=== PATIENT | male | born 1960 | race Caucasian/White ===

== ENCOUNTER 2017-12-26 08:22 | Observation (INO) ==
--- NOTE | 2017-12-26 08:47 | Emergency Department Note ---
Disposition Clinical Impression: Chest pain Qualifiers: Chest pain type: other chest pain Qualified Code(s): R07.89 - Other chest pain Disposition: Admitted As Inpatient Condition: Good Time of Disposition: 10:32 General Adult HPI - General Stated complaint: CP Time Seen by Provider: 12/26/17 08:26 Source: patient Nursing Notes Reviewed: Yes Vital Signs Reviewed: Yes - History of Present Illness HPI Narrative: Left-sided chest pain that started this morning. Woke up and noticed it was there. Got worse after he went to work. Radiates to his left neck and left arm. No associated shortness of breath nausea vomiting or diarrhea. Did get some mild relief with one nitroglycerin administered by EMS. Thought that he had slept on his neck wrong and that was provoking the pain. Pain Scale: 4 - Related Data Previous Rx's Medication Instructions Recorded Naproxen [Naprosyn] 500 mg PO BID #10 tablet 02/06/16 HYDROcodone/Acet 5/325 mg [[place] 1 tab PO Q6H PRN #15 tab 11/01/16 5-325 mg] diazePAM [Valium] 5 mg PO TID #10 tablet 11/01/16 Allergies Allergy/AdvReac Type Severity Reaction Status Date / Time aspirin [ASA] AdvReac Nausea Verified 11/01/16 07:37 All systems ED: reviewed and negative except as stated. Constitutional: Denies: fever, chills Cardiovascular: Reports: chest pain (Left-sided). Denies: palpitations Respiratory: Reports: cough, sputum production (For over a month). Denies: dyspnea Gastrointestinal: Denies: abdominal pain, nausea, vomiting, diarrhea, hematemesis, melena, hematochezia Genitourinary: Denies: urgency, dysuria, frequency, hematuria Musculoskeletal: Reports: neck pain (Left-sided). Denies: back pain Neurological: Denies: headache, weakness Past Medical History - Past Medical History Attestation: Yes The following information was validated with the patient. Source: patient Medical history: Reports: cancer, hypertension, myocardial infarction Surgical history: Reports: non-contributory Psychiatric history: Reports: no psych history - Social History Smoking Status: Never smoker Smokeless Tobacco Status: No Alcohol use: Reports: none Drug use: Reports: none Physical Exam - General Limitations: no limitations General appearance: alert, in no apparent distress - Head Head exam: atraumatic, normocephalic, normal inspection - Eye Eye exam: Present: normal appearance, PERRL, EOMI - ENT ENT exam: normal exam, normal oropharynx, mucous membranes moist - Neck Neck exam: Present: normal inspection, full ROM, trachea midline - Chest Chest inspection: Present: normal inspection, symmetric chest wall rise - Respiratory Respiratory exam: Present: normal lung sounds bilaterally. Absent: respiratory distress, wheezes, accessory muscle use - Cardiovascular Cardiovascular exam: Present: regular rate, normal rhythm, normal heart sounds - Abdominal Exam Abdominal exam: Present: soft, Non-Tender. Absent: rigidity - Extremities Exam Extremities exam: Present: normal inspection, full ROM. Absent: tenderness, pedal edema - Neurological Exam Neurological exam: Present: alert, oriented X3 - Psychiatric Psychiatric exam: Present: normal affect, normal mood - Skin Skin exam: Present: warm, dry, intact, normal color. Absent: rash, cyanosis Course Course Narrative: Male patient presents emergency department complaining of left-sided chest pain that was present when he woke up this morning. Significantly got worse while he was sitting in his truck at work. States he has been told that he had a heart attack in the past has never had stent placement. States that the pain is on the left side of his chest goes into his left neck and down left arm. Denies any nausea vomiting or shortness of breath. No swelling or edema to his extremities. He cannot reproduce the pain with palpation. He is flushed in his face. He does not appear to be in any distress at this time. Lung sounds are clear. We will do a cardiac workup and provide patient with pain medication. States he did receive 4 baby aspirin in the squad on the way here. He also received 1 nitroglycerin with some relief of the pain. Patient has a significant cardiac history in his family with early deaths. He is a smoker. He has a heart score of 5. His troponin is negative currently. No signs of acute STEMI on EKG. Patient is still having persistent chest pain. We will provide him with some fentanyl while here. We will admit to the hospital for further cardiac workup. - Consultations Consultation #1: Dr Hanna accepted Pt in stable condition. Time: 10:40 Vital Signs Temperature 97.8 F 12/26/17 08:23 Pulse Rate 78 12/26/17 08:23 Respiratory Rate 16 12/26/17 08:23 Blood Pressure 144/95 12/26/17 08:23 O2 Sat by Pulse Oximetry 96 12/26/17 08:23 Temperature 97.8 F 12/26/17 08:23 Pulse Rate 87 12/26/17 09:27 Respiratory Rate 16 12/26/17 09:27 Blood Pressure 144/95 12/26/17 09:27 O2 Sat by Pulse Oximetry 98 12/26/17 09:27 Oxygen Delivery Oxygen Delivery Room Air Medical Decision Making - Medical Records Medical records reviewed: Yes I reviewed the patient's medical records. - Lab Data Lab results reviewed: Yes I reviewed the patient's lab results. Result diagrams: 12/26/17 09:06 12/26/17 09:06 Lab Results 12/26/17 12/26/17 12/26/17 Range/Units 09:06 09:06 09:06 WBC 6.8 (4.3-11.1) K/mcL RBC 5.85 H (4.19-5.50) M/mcL Hgb 16.3 (12.9-16.9) g/dL Hct 48.2 (37.5-50.1) % MCV 82.4 L (83.0-100.0) fL MCH 27.9 L (28.0-33.3) pg MCHC 33.8 (31.6-35.5) g/dL RDW 13.7 (11.5-14.5) % Plt Count 207 (140-400) K/mcL MPV 9.6 (9.4-12.4) fL Immature Gran % 0.3 (0-4) % Seg Neutrophils % 75.9 % Lymphocytes % 16.4 % Monocytes % 5.8 % Eosinophils % 1.2 % Basophils % 0.4 % Neutrophils # 5.1 (1.6-8.9) K/mcL Lymphocytes # 1.1 (0.6-4.6) K/mcL Monocytes # 0.4 (0.0-1.3) K/mcL Eosinophils # 0.1 (0.0-0.6) K/mcL Basophils # 0.0 (0.0-0.2) K/mcL PT 12.6 H (9.4-12.1) Seconds INR 1.2 Sodium 137 (136-145) mEq/L Potassium 3.9 (3.5-5.1) mEq/L Chloride 105 (98-107) mEq/L Carbon Dioxide 26 (23-29) mEq/L BUN 11 (6-20) mg/dL Creatinine 0.90 (0.70-1.30) mg/dL Est GFR ( Amer) > 60 (> 60) Est GFR (Non-Af Amer) > 60 (> 60) BUN/Creatinine Ratio 12 (6-26) Glucose 120 H (70-105) mg/dL Calculated Osmolality 285 (280-300) Calcium 8.8 (8.6-10.3) mg/dL Troponin I < 0.03 (< 0.04) ng/mL - Radiology Data Radiology results reviewed: Yes I reviewed the patient's radiology results. No signs of cardiopulmonary disease. - EKG Data EKG #1 EKG attestation: Yes I reviewed and interpreted this EKG. EKG results narrative: Normal sinus rhythm at a rate 82. OK intervals 134. QRS duration is 107. QT is 373. QTC is 411. No signs of acute ischemia. No significant change from previous EKG dated 01/06/2014. Heart Score - Score History: Moderately Suspicious EKG: Non Specific repolarisation Disturbance Age: 45-65 Risk Factors: Equal/Greater than 3 risk factor or history of atherosclerotic disease Troponin: Less than normal limit HEART Score Total: 5
[2017-12-26 09:18] LABS: Basophils % 0.4 %; Eosinophils # 0.1 K/mcL (0.0-0.6); Eosinophils % 1.2 %; Hematocrit 48.2 % (37.5-50.1); Hemoglobin 16.3 g/dL (12.9-16.9); Immature Granulocytes % 0.3 % (0-4); Lymphocytes # 1.1 K/mcL (0.6-4.6); Lymphocytes % 16.4 %; Mean Corpuscular HGB Conc 33.8 g/dL (31.6-35.5); Mean Corpuscular Hemoglobin 27.9 pg (28.0-33.3); Mean Corpuscular Volume 82.4 fL (83.0-100.0); Mean Platelet Volume 9.6 fL (9.4-12.4); Monocytes # 0.4 K/mcL (0.0-1.3); Monocytes % 5.8 %; Neutrophils # 5.1 K/mcL (1.6-8.9); Platelet Count 207 K/mcL (140-400); Red Blood Count 5.85 M/mcL (4.19-5.50); Red Cell Distribution Width 13.7 % (11.5-14.5); Segmented Neutrophils % 75.9 %
[2017-12-26 09:24] LABS: INR 1.2; Prothrombin Time 12.6 Seconds (9.4-12.1)
[2017-12-26 09:43] LABS: BUN/Creatinine Ratio 12 (6-26); Blood Urea Nitrogen 11 mg/dL (6-20); Calcium 8.8 mg/dL (8.6-10.3); Carbon Dioxide 26 mEq/L (23-29); Chloride 105 mEq/L (98-107); Glucose 120 mg/dL (70-105); Osmolality,Calculated 285 (280-300); Potassium 3.9 mEq/L (3.5-5.1); Sodium 137 mEq/L (136-145); Troponin I < 0.03 ng/mL (< 0.04); eGFR For African Americans > 60 (> 60); eGFR For Non-African Americans > 60 (> 60)
[2017-12-26] MEDS ORDERED: *HR* FentaNYL (PF) 100 MCG/2 ML VIAL IVP ONE (10:27)
[2017-12-26] MEDS ORDERED: Nitroglycerin 0.4 MG TAB.SUBL SL STA (12:53)
[2017-12-26] MEDS ORDERED: *HR* HYDROcodone/Acet 5/325 mg TABLET PO PRN (12:59)
[2017-12-26] MEDS ORDERED: Naloxone 0.4 MG/ML INJ IVP PRN (12:59)
[2017-12-26] MEDS ORDERED: Acetaminophen 325 MG TABLET PO PRN (12:59)
[2017-12-26] MEDS ORDERED: Nitroglycerin 0.4 MG TAB.SUBL SL PRN (13:06)
--- NOTE | 2017-12-26 13:22 | Internal Med History&Physical ---
Date of Encounter: 12/26/17 Time of Encounter: 13:19 Internal Medicine - H&P: HPI Chief complaint: Chest Pain, Left Neck Pain, Left Shoulder Pain Admitted From: Emergency Dept Plans for Post Hospital Care: Home History of present illness: Mr. Betts is a 57 year old white male with PMH of CAD, HTN, and HLD, who presented to ED this morning with chest pain, left neck pain, and left shoulder pain. He states that pain started this morning when he woke up. Pain was located in left upper chest and radiated to left neck and left shoulder. 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 So he decided to come to ED. He denies any SOB, diaphoresis, nausea, vomiting, fever, or chills. He was brought by EMS, and had brief improvement in pain en route with administration of nitroglycerin. He had thought that he may have "slept wrong" on his neck. During my interview, chest pain is improved to 4/ 10. He received IV fentanyl in ED. In the ED, initial EKG was unremarkable and initial troponin was WNL. He has no other complaints at this time. Past Med Surg Social Fam HX - Past Medical History Attestation: Yes The following information was validated with the patient. Source: patient Medical history: cancer, coronary artery disease, hyperlipidemia, hypertension, myocardial infarction Psychiatric history: no psych history - Past Surgical History Surgical History: no surgical history - Social History Smoking Status: Current every day smoker Smokeless Tobacco Status: No Alcohol use: none Drug use: none - Additional Family History Additional family history: No significant family history per patient. Internal Medicine - H&P: Meds Aspirin 81 mg PO DAILY 12/26/17 [History] Dicyclomine [Bentyl] 10 mg PO TID 12/26/17 [History] Lisinopril [Zestril] 10 mg PO DAILY 12/26/17 [History] Lovastatin [Mevacor] 20 mg PO DAILY 12/26/17 [History] Metoprolol XL (24 HR) Succ [Toprol XL] 12.5 mg PO DAILY 12/26/17 [History] Omeprazole [PriLOSEC] 20 mg PO DAILY 12/26/17 [History] 3 Allergy/AdvReac Type Severity Reaction Status Date / Time aspirin [ASA] AdvReac Nausea Verified 12/26/17 11:05 - Constitutional Constitutional: no anorexia, no chills, no fatigue, no fever(s), no lethargy, no malaise, no weakness, no weight gain, no weight loss - EENT Eyes: no blurry vision, no diplopia, no discharge, no loss of vision, no pain, no other visual disturbances Ears: no decreased hearing, no ear pain Nose, mouth and throat: no dry mouth, no dysphagia, no facial pain, no mouth lesions, no mouth pain, no nasal congestion, no nasal discharge, no sinus pain, no sore throat - Cardiovascular Cardiovascular ROS IM: chest pain, no diaphoresis, no dyspnea, no dyspnea on exertion, no edema, no lightheadedness, no palpitations, no syncope - Respiratory Respiratory: no cough, no dyspnea, no hemoptysis, no dyspnea on exertion, no wheezing, no chest congestion - Gastrointestinal Gastrointestinal: no abdominal pain, no change in bowel habits, no constipation , no diarrhea, no dysphagia, no heartburn, no hematemesis, no hematochezia, no melena, no nausea, no vomiting - Genitourinary Genitourinary ROS male: no difficulty urinating, no dysuria, no hematuria, no urinary frequency - Musculoskeletal Musculoskeletal ROS IM: myalgias, neck pain, no back pain, no joint swelling, no muscle cramps, no muscle weakness - Integumentary Integumentary IM: no erythema, no rash, no skin ulcer, no jaundice - Neurological Neurological ROS: no abnormal gait, no abnormal speech, no behavioral changes, no confusion, no dizziness, no focal weakness, no headache(s), no vertigo, no weakness - Psychiatric Psychiatric: no anxiety, no behavioral changes, no confusion, no depression, no hallucinations - Endocrine Endocrine IM: no cold intolerance, no fatigue, no heat intolerance, no polydipsia, no polyphagia, no polyuria - Constitutional Vitals: Temp Pulse Resp BP Pulse Ox 97.5 F L 58 16 118/74 96 12/26/17 11:14 12/26/17 11:14 12/26/17 11:14 12/26/17 11:14 12/26/17 11:14 General appearance: Present: cooperative, A&O X 3, no acute distress, obese, answers questions appropriately - Head Head exam: Present: atraumatic, normocephalic - Eye Eye exam: Present: EOMI, PERRL. Absent: conjunctival injection, nystagmus, scleral icterus - ENT ENT exam: Present: mucous membranes moist, normal external ear exam, normal oropharynx - Neck Neck exam general surgery: Present: supple, trachea midline. Absent: lymphadenopathy, thyromegaly Additional comments: Mild TTP over left neck - Respiratory Respiratory exam: Present: CTAB. Absent: accessory muscle use, rales, rhonchi, wheezes Additional comments: Normal WOB - Cardiovascular Cardiovascular exam: Present: RRR, +S1, +S2. Absent: diastolic murmur, gallop, rubs, systolic murmur Additional comments: No BLE edema, mild TTP over left upper chest - GI/Abdominal GI/Abdominal exam: Present: normal bowel sounds, soft. Absent: distended, hepatomegaly, mass, splenomegaly, tenderness - Extremities Exam Extremities exam: Present: normal capillary refill. Absent: calf tenderness, cyanotic, joint swelling, pedal edema, tenderness Additional comments: Mild TTP over left shoulder - Neurological Exam Neurological exam: Present: alert, CN II-XII intact, oriented X3, no focal deficits, strengths equal and symetr throughout. Absent: facial droop, speech deficit - Psychiatric Psychiatric exam: Present: normal affect, normal mood. Absent: anxious, depressed - Skin Skin exam: Present: dry, intact, warm. Absent: cyanosis, rash Internal Med - H&P Results - Labs CBC & Chem 7: 12/26/17 09:06 12/26/17 09:06 - VTE Reasons for not Prescribing Prophylaxis: Treatment not Indicated - Low risk for VTE Documentation of Mechanical Device: Intermittent pneumatic compression device - Assessment and plan (1) Chest pain Current Visit: Yes Status: Acute Assessment and plan: Non-specific left chest, left neck, and left shoulder pain that is reproducible with palpation. Remote history of CAD with no intervention 7 years ago. He has been following up with cardiology since then. Low to moderate suspicion for ACS. Will admit to observation for workup and ruleout of ACS. Start telemetry. Start supplemental O2 PRN. Start SL nitro PRN. Start tylenol and norco PRN pain. Continue home aspirin. Trend troponin x 3. Obtain ECHO. Repeat EKG in AM. Continue home medications for CAD, HTN, and HLD. Repeat labwork in AM. Qualifiers: Chest pain type: other chest pain Qualified Code(s): R07.89 - Other chest pain; R07.8 - Other chest pain (2) Neck pain on left side Current Visit: Yes Status: Acute Assessment and plan: No history of trauma. Treat pain as per above. (3) Left shoulder pain Current Visit: Yes Status: Acute Assessment and plan: No history of trauma. Treat pain as per above. Qualifiers: Chronicity: acute Qualified Code(s): M25.512 - Pain in left shoulder (4) CAD (coronary artery disease) Current Visit: Yes Status: Chronic Assessment and plan: Ruling out ACS as per above. Continue home medications. Qualifiers: Coronary Disease-Associated Artery/Lesion type: unspecified vessel or lesion type [place] vs. transplanted heart: unspecified whether [place] or transplanted heart Associated angina: with unspecified angina Qualified Code (s): I25.119 - Atherosclerotic heart disease of [place] coronary artery with unspecified angina pectoris (5) HTN (hypertension) Current Visit: Yes Status: Chronic Assessment and plan: Continue home lisinopril and metoprolol XL. Qualifiers: Hypertension type: essential hypertension Qualified Code(s): I10 - Essential (primary) hypertension (6) HLD (hyperlipidemia) Current Visit: Yes Status: Chronic Assessment and plan: Continue home lovastatin. Qualifiers: Hyperlipidemia type: mixed hyperlipidemia Qualified Code(s): E78.2 - Mixed hyperlipidemia (7) GERD (gastroesophageal reflux disease) Current Visit: Yes Status: Chronic Assessment and plan: Continue home omeprazole. Qualifiers: Esophagitis presence: without esophagitis Qualified Code(s): K21.9 - Gastro -esophageal reflux disease without esophagitis (8) DVT prophylaxis Current Visit: Yes Status: Acute Assessment and plan: Low risk and ambulatory. Start SCDs. - Time Spent With Patient Total time spent is greater than 50% in coordination of care (as documented) at patient's floor/unit and/or counseling patient: 25 - 35 minutes
[2017-12-26] MEDS: Aspirin 81 MG TAB.CHEW PO SCH (14:26)
[2017-12-26] MEDS: Metoprolol XL (24 HR) Succ 25 MG TAB.ER.24H PO SCH (14:26)
--- NOTE | 2017-12-26 15:07 | Electrocardiograph Report ---
[address] [place] [address] Test Date: 2017-12-26 Pat Name: Jeremiah Betts Department: 103 Room: 2A16 Gender: M Project Admin: NELLIE : 1960 Requested By: Prabhjot Hawthorne Order Number: [id number] Reading MD: Hilary Cintron Measurements Intervals [place] Rate: 82 P: 6 [place]: 134 QRS: 100 QRSD: 107 T: 31 QT: 373 QTc: 411 Interpretive Statements SINUS RHYTHM BORDERLINE RIGHT AXIS DEVIATION [QRS AXIS > 90] PROBABLE INFERIOR MYOCARDIAL INFARCTION [35 ms Q WAVE IN II/aVF], PROBABLY OLD Electronically Signed On 12-26-2017 15:05:52 EDT by Hilary Cintron
[2017-12-27 01:20] LABS: Basophils # 0.1 K/mcL (0.0-0.2); Basophils % 0.6 %; Eosinophils # 0.2 K/mcL (0.0-0.6); Hematocrit 46.3 % (37.5-50.1); Hemoglobin 15.5 g/dL (12.9-16.9); Immature Granulocytes % 0.1 % (0-4); Lymphocytes # 2.6 K/mcL (0.6-4.6); Lymphocytes % 32.6 %; Mean Corpuscular HGB Conc 33.5 g/dL (31.6-35.5); Mean Corpuscular Hemoglobin 27.8 pg (28.0-33.3); Mean Corpuscular Volume 83.1 fL (83.0-100.0); Mean Platelet Volume 10.2 fL (9.4-12.4); Monocytes # 0.6 K/mcL (0.0-1.3); Monocytes % 7.8 %; Neutrophils # 4.5 K/mcL (1.6-8.9); Platelet Count 183 K/mcL (140-400); Red Blood Count 5.57 M/mcL (4.19-5.50); Red Cell Distribution Width 13.7 % (11.5-14.5); Segmented Neutrophils % 56.9 %
[2017-12-27 01:31] LABS: BUN/Creatinine Ratio 12 (6-26); Blood Urea Nitrogen 11 mg/dL (6-20); Carbon Dioxide 29 mEq/L (23-29); Chloride 105 mEq/L (98-107); Chol/HDL Ratio 4.2 (0-4.9); Cholesterol 118 mg/dL (< 200); Glucose 119 mg/dL (70-105); HDL Cholesterol 28 mg/dL (40-59); LDL Cholesterol,Calculated 76 mg/dL (0-99); Osmolality,Calculated 287 (280-300); Potassium 4.3 mEq/L (3.5-5.1); Sodium 138 mEq/L (136-145); Triglycerides 69 mg/dL (< 150); eGFR For African Americans > 60 (> 60); eGFR For Non-African Americans > 60 (> 60)
[2017-12-27] MEDS: Metoprolol XL (24 HR) Succ 25 MG TAB.ER.24H PO SCH (09:21)
[2017-12-27] MEDS: Aspirin 81 MG TAB.CHEW PO SCH (09:23)
[2017-12-27 10:47] VITALS: BP 134/81
--- NOTE | 2017-12-27 14:01 | Discharge Summary ---
- NOTES TO OUTPATIENT PROVIDER Notes to Outpatient Provider: Normal echo, negative troponin, likely musculoskeletal pain Date of Encounter: 12/27/17 Time of Encounter: 13:45 - Discharge Diagnosis (1) Chest pain Priority: Primary Status: Resolved Comments: 57-year-old male with left neck in the precordial pain repeatable reproducible to palpation with negative troponins and normal echo and electrocardiogram. His last cardiac workup was an angiogram 7 years ago. There is no prior history of PCI. His precordial pain has resolved and all he complains of his neck pain. Symptoms were likely musculoskeletal. Qualifiers: Chest pain type: precordial pain Qualified Code(s): R07.2 - Precordial pain (2) Neck pain on left side Priority: Primary Status: Acute (3) Left shoulder pain Priority: Primary Status: Acute Qualifiers: Chronicity: acute Qualified Code(s): M25.512 - Pain in left shoulder (4) CAD (coronary artery disease) Priority: Primary Status: Chronic Comments: Resume prior home medications Qualifiers: Coronary Disease-Associated Artery/Lesion type: unspecified vessel or lesion type [place] vs. transplanted heart: unspecified whether [place] or transplanted heart Associated angina: with unspecified angina Qualified Code (s): I25.119 - Atherosclerotic heart disease of [place] coronary artery with unspecified angina pectoris (5) HTN (hypertension) Priority: Secondary Status: Chronic Qualifiers: Hypertension type: essential hypertension Qualified Code(s): I10 - Essential (primary) hypertension (6) HLD (hyperlipidemia) Priority: Secondary Status: Chronic Qualifiers: Hyperlipidemia type: mixed hyperlipidemia Qualified Code(s): E78.2 - Mixed hyperlipidemia (7) GERD (gastroesophageal reflux disease) Priority: Secondary Status: Chronic Qualifiers: Esophagitis presence: without esophagitis Qualified Code(s): K21.9 - Gastro -esophageal reflux disease without esophagitis Hospital course: Mr. Betts is a 57 year old male with known CAD, last angiogram 7 years ago, no PCI presented with left precordial and neck pain, reproducible to palpation that resolved in the last 24 hours. He underwent an echo which was normal, EKG was normal and troponin I was negative. As such we concluded that his pain is likely muscular skeleton and will release him from the hospital. 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 Discharge discussed with: patient - Time Spent with Patient Total time spent providing and/or coordinating discharge services: Less than 30 minutes - Discharge Medications Home Medications: Aspirin 81 mg PO DAILY 12/26/17 [History] Dicyclomine [Bentyl] 10 mg PO TID 12/26/17 [History] Lisinopril [Zestril] 10 mg PO DAILY 12/26/17 [History] Lovastatin [Mevacor] 20 mg PO DAILY 12/26/17 [History] Metoprolol XL (24 HR) Succ [Toprol XL] 12.5 mg PO DAILY 12/26/17 [History] Omeprazole [PriLOSEC] 20 mg PO DAILY 12/26/17 [History] Allergies/Adverse Reactions: 3 Allergy/AdvReac Type Severity Reaction Status Date / Time aspirin [ASA] AdvReac Nausea Verified 12/26/17 11:05 Date of admission: 12/26/17 10:52 Primary care physician: Randal Guo MD Discharging clinician: Westley Lyman Anticipated date of discharge: 12/27/17 - Constitutional Vitals: Temp Pulse Resp BP Pulse Ox 97.9 F 61 18 134/81 98 12/27/17 10:44 12/27/17 10:44 12/27/17 10:44 12/27/17 10:44 12/27/17 10:44 General appearance: Present: cooperative, A&O X 3, no acute distress, obese, answers questions appropriately Exam: Physical exam Gen: Comfortable, laying in bed, in no visible distress HEENT: Normocephalic, atraumatic. No conjunctival icterus. Moist oral mucosa. Neck: Supple Lungs: Clear to auscultation, no foreign sounds Heart: Normal S1-S2, no murmurs rubs or gallops Abdomen: Normoactive bowel sounds, no guarding rigidity or tenderness Extremities: No edema clubbing or cyanosis Neuro: Alert oriented 3, no focal deficits Skin: No skin lesions - Patient Status Disposition: Home, Self-Care Condition: Good Functional capacity at discharge: independent ambulation Overall status at discharge: patient is back to baseline - Discharge Instructions Follow Up With: Randal Guo MD [Primary Care Provider] - Forms: ED Satisfaction Letter - Diet and Activity Activity: resume usual activities as tolerated Diet: low fat, low cholesterol - VTE Reasons for not Prescribing Prophylaxis: Treatment not Indicated - Low risk for VTE Documentation of Mechanical Device: Intermittent pneumatic compression device
== END 2017-12-27 15:30 | disposition home or self-care (01) ==
LOC: EMEROO 08:22 → 2ANU 08:22
PROVIDERS: ADMIT Family Medicine; ATTEND Family Medicine